=== PATIENT | female | born 1955 | race American Indian/Alaskan Native ===

== ENCOUNTER 2017-01-29 09:05 | Day surgery (SDC) | payer OTHER ==
[~2017-01-29] VITALS: Ht 157.5 cm; Wt 78.0 kg
[~2017-01-29 09:05] MED LIST: ATORVASTATIN CA10 MG PO; CEPHALEXIN500 MG PO; CLARITIN10 M2 PO; CYCLOBENZAPRINE10 MG PO; DYRENIUM50 MG PO; GLIPIZIDE10 MG PO; JANUVIA100 MG PO; TRAMADOL HCL50 MG PO; VITAMIN D2000 UNIT PO; ZESTRIL10 MG PO
--- NOTE | 2017-01-29 11:12 | NUR ---
01/29/17 1112 Zohreh Nath 1108 PATIENT ARRIVES TO PACU SITTING UP IN BED WITH EYES CLOSED, DOES NOT FOLLOW COMMANDS. RESP EVEN AND UNLABORED, MASK AT 8 LITERS.
--- NOTE | 2017-01-29 12:58 | NUR ---
1240: PATIENT MEDICATED FOR BURNING 6/10 PAIN IN LEFT BREAST. LEFT BREAST DRESSING CDI. O2 TURNED DOWN TO 1 L/MIN VIA NC. SCDs ON. MOTHER AT BEDSIDE. CALL LIGHT WITHIN REACH.
[2017-01-29] MEDS ORDERED: NORCO 5-325 TA1 EACH PO (13:44)
--- NOTE | 2017-01-29 14:28 | NUR ---
1410: PATIENT DROWSY, BUT EASILY AWAKENS. STATES PAIN IMPROVED. GIVEN SOUP TO EAT. NO OTHER REQUESTS AT THIS TIME. MOTHER AT BEDSIDE. CALL LIGHT WITHIN REACH.
--- NOTE | 2017-01-31 07:10 | OR ---
[facility] [address] [place], [place] [address] Signed DATE OF PROCEDURE: 01/29/17 PREOPERATIVE DIAGNOSIS: Palpable left retroareolar breast mass (1 x 2 cm). POSTOPERATIVE DIAGNOSIS: Palpable left retroareolar breast mass (1 x 2 cm). PROCEDURE: Excisional biopsy, left breast mass. ESTIMATED BLOOD LOSS: None. INDICATIONS Rupal is a 61-year-old female who was asked to see me for a palpable lump behind her left nipple areolar complex. Her mammogram in August of 2016 seemed to be fine. She woke up the day of [place] this fall and had a painful lump behind her left breast. She had been to her primary care provider. An ultrasound showed this complex mass measuring 1.9 x 1.3 x 1.7 cm. It had irregular margins and there was internal blood flow. It seemed to be inhomogeneous with the echotexture as well. She tried antibiotics and made no difference. Consequently, she was asked to see me as a general surgeon. In the office, she told me she thought it was the same size. Although today it seems to be a little smaller. She said it has not drained or been infected to her knowledge. However, it is tender and it is hard to hold her grandchildren or even sleep at night. She has been using Hydrocodone to control the pain. To her knowledge there was no trauma to the area. She has never had a previous breast biopsy. There is no family history of breast cancer. In the office, Rupal and I had a long discussion regarding her options. There was some consideration to weight and watch it over time and maybe repeat the ultrasound in the future. The other options of course would be to remove it completely in the operating room for definitive treatment and diagnosis. She had elected for the excisional biopsy. I gave her a booklet on breast and breast biopsies. We looked at that carefully. She understands the nature of the circumareolar incision to remove the lesion. She does understand the expected intra and postop course. We did review the risks including but not limited to bleeding, infection, scarring, change in contour of the skin as well as the possible need for additional surgery or treatments based on pathologic results. She had expressed understanding and wished to proceed. PROCEDURE NOTE I met with Rupal and her sister and our nurse in our preop area. 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 She thought today the mass was a little smaller. We could easily palpate that lesion. We went ahead and marked that appropriately. After this, Rupal was taken in the operating room and placed in a supine position under general endotracheal tube anesthesia. She was given preoperative antibiotics along with subcutaneous heparin. SCDs were utilized. She was then prepped and draped in the usual sterile fashion. We made a circumareolar incision Electronically Signed By: JUANJOSE HIGUERA MD 01/31/17 0710 PATIENT NAME: RUPAL NARANJO OPERATIVE REPORT DATE OF : 55 PHYSICIAN: JUANJOSE HIGUERA MD REPORT #: [id number] REPORT IS CONFIDENTIAL AND NOT TO BE RELEASED WITHOUT AUTHORIZATION [address] [address] Signed from about the 7 o'clock position to about the 2 o'clock position. This was carried down and around the lesion with the help of a cautery. This was an excisional biopsy, we did not take additional tissue with the specimen. The specimen is immediately behind the nipple and runs right up to the nipple itself. Consequently this most likely will represent some clogged duct. When we the lesion from the nipple, it left a small 3 mm opening in the nipple which we closed with a running #5-0 Monocryl suture. After this, we used our 5-0 Monocryl suture to bring the nipple up to at least flat with the level of the skin. We then placed a silk stitch on the end of the specimen on the same side as the nipple to marvin its location. After this, local anesthetic was copiously injected in the wound. The wound was irrigated and suctioned out until clear. We closed the wound in layers with 3-0 Monocryl suture including the dermis. We then closed the skin with a running 6-0 fast absorbing plain gut suture. This gave her an excellent cosmetic result. After this, dry gauze and tape was applied. Rupal was awakened from anesthesia, extubated in the OR, and taken into the recovery room in stable condition. MD DARYL Madrid/Ciral /[id number] cc: Emily Valentine MD Electronically Signed By: JUANJOSE HIGUERA MD 01/31/17 0710 PATIENT NAME: RUPAL NARANJO OPERATIVE REPORT DATE OF : 55 PHYSICIAN: JUANJOSE HIGUERA MD REPORT #: [id number] REPORT IS CONFIDENTIAL AND NOT TO BE RELEASED WITHOUT AUTHORIZATION
== END 2017-01-29 15:10 | disposition home or self-care (01) ==
LOC: DS 09:05
PROVIDERS: Colon & Rectal Surgery
PROC: 0HBU0ZX Excision of Left Breast, Open Approach, Diagnostic (ICD-10-PCS; principal; 2017-01-29 09:30)
DX: N61.1 Abscess of the breast and nipple (principal); N60.82 Other benign mammary dysplasias of left breast; Z87.891 Personal history of nicotine dependence; Z79.899 Other long term (current) drug therapy
CPT/HCPCS: 00404; J0330; J0690; J1644; J2704; J3010; J7120

== ENCOUNTER 2017-12-26 11:01 | Emergency (ER) | payer OTHER ==
[~2017-12-26] VITALS: Ht 157.5 cm; Wt 78.0 kg
--- OUTSIDE RECORDS SUMMARY | ~2017-12-26 | XMS | Encounter Summary ---
Demographics + + + | Address | [address] | | | [place] [address] | + + + | Home Phone | | + + + | Preferred Language | Unknown | + + + | Marital Status | | + + + | Rastafari Affiliation | Unknown | + + + | Race | Unknown | + + + | Ethnic Group | Unknown | + + + Author + + + | Author | [email or web address] | + + + | Organization | [email or web address] | + + + | Address | Unknown | + + + | Phone | Unavailable | + + + Support + + +---------+ + | Name | Relationship | Address | Phone | + + +---------+ + | Tessa Corral | ECON | Unknown | | + + +---------+ + | Adelina Jackson | ECON | Unknown | | + + +---------+ + | Jurgen Pineda | ECON | Unknown | | + + +---------+ + Care Team Providers + +------+ + | Care Keg Filler Name | Role | Phone | + +------+ + | Emily Valentine PA-C | PCP | | + +------+ + Reason for Visit + + + | Reason | Comments | + + + | Labs Only | [facility] dated 11/29/2017 | + + + Encounter Details +--------+ + + + + | Date | Type | Department | Care Team | Description | +--------+ + + + + | 11/30/ | Documentati | [facility] | Gloria Fox CMA | Labs Only ([facility] | | 2018 | on Only | [place] [address] | | Labs dated | | | | [address] | | 11/29/2017) | | | | [place], [place] [address] | | | | | | [phone] | | | +--------+ + + + + Social History + +-------+ +--------+------+ | Tobacco Use | Types | Packs/Day | Years | Date | | | | | Used | | + +-------+ +--------+------+ | Never Smoker | | | | | + +-------+ +--------+------+ + + + | Sex Assigned at | Date Recorded | | | | + + + | Not on file | | + + + as of this encounter Plan of Treatment Not on fileas of this encounter Visit Diagnoses Not on filein this encounter"
--- OUTSIDE RECORDS SUMMARY | ~2017-12-26 | XMS | Clinical Summary ---
Demographics + + + | Address | [address] | | | [place] [address] | + + + | Home Phone | | + + + | Preferred Language | Unknown | + + + | Marital Status | | + + + | Hindu Affiliation | Unknown | + + + | Race | Unknown | + + + | Ethnic Group | Unknown | + + + Author + + + | Author | [facility] | + + + | Organization | [facility] | + + + | Address | [...] Team Providers + +------+ + | Care Forestry Biology Specialist Name | Role | Phone | + +------+ + | Emily Valentine PA-C | PP | | + +------+ + Allergies No Known Allergies Current Medications + + +---------+---------+------+------+-------+ | Prescription | Sig. | Disp. | Refills | Star | End | Statu | | | | | | t | Date | s | | | | | | Date | | | + + +---------+---------+------+------+-------+ | cyclobenzaprine | Take 10 mg by mouth | | | | | Activ | | (FLEXERIL) 10 MG | daily. | | | | | e | | tablet | | | | | | | + + +---------+---------+------+------+-------+ | triamterene | Take 50 mg by mouth | | | | | Activ | | (DYRENIUM) 50 MG | daily. | | | | | e | | capsule | | | | | | | + + +---------+---------+------+------+-------+ | loratadine | Take 10 mg by mouth | | | | | Activ | | (CLARITIN) 10 MG | daily. | | | | | e | | tablet | | | | | | | + + +---------+---------+------+------+-------+ | atorvastatin | Take 10 mg by mouth | | | | | Activ | | (LIPITOR) 10 MG | nightly. | | | | | e | | tablet | | | | | | | + + +---------+---------+------+------+-------+ | ergocalciferol | Take 1 capsule by | 12 | 0 | 08/0 | | Activ | | (DRISDOL) [id number] | mouth once a week. | capsule | | 07/30 | | e | | units | | | | 17 | | | | capsuleIndications: | | | | | | | | CKD (chronic kidney | | | | | | | | disease) stage 3, | | | | | | | | GFR 30-59 ml/min, | | | | | | | | Essential | | | | | | | | hypertension, | | | | | | | | benign, Proteinuria, | | | | | | | | Vitamin D | | | | | | | | deficiency | | | | | | | + + +---------+---------+------+------+-------+ | lisinopril | Take 1 tablet by | 90 | 3 | 02/2 | | Activ | | (ZESTRIL) 5 MG | mouth daily. | tablet | | 06/29 | | e | | tablet | | | | 18 | | | + + +---------+---------+------+------+-------+ | aspirin 81 MG | Take 81 mg by mouth | | | | | Activ | | tablet | daily. | | | | | e | + + +---------+---------+------+------+-------+ | sitagliptan | Take 25 mg by mouth | | | | | Activ | | (JANUVIA) 25 MG | daily. | | | | | e | | tablet | | | | | | | + + +---------+---------+------+------+-------+ Active Problems + + + | Problem | Noted Date | + + + | CKD (chronic kidney disease) stage 3, GFR 30-59 ml/min | 05/13/2016 | + + + | Acute pain of left shoulder | 11/29/2015 | + + + | Diabetes mellitus (HCC) | 12/28/2011 | + + + | Essential hypertension, benign | 12/28/2011 | + + + | Obesity | 12/28/2011 | + + + | Low back pain | 12/28/2011 | + + + | Vitamin D deficiency | 12/28/2011 | + + + | Proteinuria | 12/28/2011 | + + + Resolved Problems + + + + | Problem | Noted | Resolved | | | Date | Date | + + + + | CKD (chronic kidney disease), stage III | 12/28/19 | | | | 12 | 7 | + + + + Encounters +--------+ + + + + | Date | Type | Specialty | Care Team | Description | +--------+ + + + + | 12/01/ | Office | | Rhett Frederick, | CKD (chronic kidney | | 2018 | Visit | | [facility] | disease) stage 3, | | | | | | GFR 30-59 ml/min | | | | | | (Primary Dx); | | | | | | Essential | | | | | | hypertension, | | | | | | benign; Proteinuria, | | | | | | unspecified type; | | | | | | Vitamin D deficiency | +--------+ + + + + | 11/30/ | Documentati | | Gloria Fox CMA | Labs Only ([facility] | | 2018 | on Only | | | Labs dated | | | | | | 11/29/2017) | +--------+ + + + + | 11/30/ | Orders Only | | Gloria Fox CMA | CKD (chronic kidney | | 2018 | | | | disease) stage 3, | | | | | | GFR 30-59 ml/min; | | | | | | Essential | | | | | | hypertension, | | | | | | benign; Proteinuria, | | | | | | unspecified type | +--------+ + + + + from Last 3 Months Social History + +-------+ +--------+------+ | Tobacco [...] on file | | + + + Last Filed Vital Signs + + + + | Vital Sign | Reading | Time Taken | + + + + | Blood Pressure | 88/52 | 12/01/2017 9:45 AM PDT | + + + + | Pulse | 79 | 12/01/2017 9:45 AM PDT | + + + + | Temperature | 36 C (96.8 F) | 06/04/2017 10:56 AM PST | + + + + | Respiratory Rate | 14 | 01/20/2013 3:00 PM PDT | + + + + | Oxygen Saturation | 92% | 12/01/2017 9:45 AM PDT | + + + + | Inhaled Oxygen | - | - | | Concentration | | | + + + + | Weight | 75.3 kg (166 lb) | 12/01/2017 9:45 AM PDT | + + + + | Height | 162.6 cm (5' 4") | 12/01/2017 9:45 AM PDT | + + + + | Body Mass Index | 28.49 | 12/01/2017 9:45 AM PDT | + + + + Plan of Treatment + + + + + | Health Maintenance | Due Date | Last Done | Comments | + + + + + | Diabetic Eye Exam | | | | | | 6 | | | + + + + + | Diabetic Foot Exam | | | | | | 6 | | | + + + + + | Hemoglobin A1c | | | | | | 6 | | | + + + + + | Vaccine: | | | | | Dtap/Tdap/Td (1 - | 5 | | | | Tdap) | | | | + + + + + | Vaccine: | | | | | Pneumococcal 19-64 | 5 | | | | (PPSV23 only) Medium | | | | | Risk (1 of 1 - | | | | | PPSV23) | | | | + + + + + | Cervical Cancer | | | | | Screening (Pap) | 6 | | | + + + + + | Breast Cancer | | | | | Screening | 6 | | | | (Mammogram) | | | | + + + + + | Colon Cancer | | | | | Screening | 6 | | | | (Colonoscopy) | | | | + + + + + | Vaccine: Zoster (1 | | | | | of 2) | 6 | | | + + + + + | Microalbumin | | 10/19/2012, 06/30/2012 | | | Screening | 4 | | | + + + + + | Vaccine: Influenza | | | | | (#1) | 8 | | | + + + + + Procedures + +--------+ + + + | Procedure Name | Priori | Date/Time | Associated Diagnosis | Comments | | | ty | | | | + +--------+ + + + | URIC ACID | Routin | 11/29/2017 | CKD (chronic | Results for this | | | e | 10:45 AM | kidney disease) | procedure are in the | | | | PDT | stage 3, GFR 30-59 | results section. | | | | | ml/min Essential | | | | | | hypertension, benign | | | | | | Proteinuria, | | | | | | unspecified type | | + +--------+ + + + | PROTEIN / CREATININE | Routin | 11/29/2017 | CKD (chronic | Results for this | | RATIO, URINE | e | 10:45 AM | kidney disease) | procedure are in the | | | | PDT | stage 3, GFR 30-59 | results section. | | | | | ml/min Essential | | | | | | hypertension, benign | | | | | | Proteinuria, | | | | | | unspecified type | | + +--------+ + + + | RENAL FUNCTION PANEL | Routin | 11/29/2017 | CKD (chronic | Results for this | | | e | 10:45 AM | kidney disease) | procedure are in the | | | | PDT | stage 3, GFR 30-59 | results section. | | | | | ml/min Essential | | | | | | hypertension, benign | | | | | | Proteinuria, | | | | | | unspecified type | | + +--------+ + + + | MAGNESIUM | Routin | 11/29/2017 | CKD (chronic | Results for this | | | e | 10:45 AM | kidney disease) | procedure are in the | | | | PDT | stage 3, GFR 30-59 | results section. | | | | | ml/min Essential | | | | | | hypertension, benign | | | | | | Proteinuria, | | | | | | unspecified type | | + +--------+ + + + | CBC W/AUTO DIFF | Routin | 11/29/2017 | CKD (chronic | Results for this | | (REFLEX TO MANUAL) | e | 10:45 AM | kidney disease) | procedure are in the | | | | PDT | stage 3, GFR 30-59 | results section. | | | | | ml/min Essential | | | | | | hypertension, benign | | | | | | Proteinuria, | | | | | | unspecified type | | + +--------+ + + + | PTH INTACT NO | Routin | 11/29/2017 | CKD (chronic | Results for this | | CALCIUM | e | 10:45 AM | kidney disease) | procedure are in the | | | | PDT | stage 3, GFR 30-59 | results section. | | | | | ml/min Essential | | | | | | hypertension, benign | | | | | | Proteinuria, | | | | | | unspecified type | | + +--------+ + + + from Last 3 Months Results Protein / creatinine ratio, urine (11/29/2017 10:45 AM) + + + + + | Component | Value | Ref Range | Performed At | + + + + + | UR | 266.7 (A) | 0 - 150 | [facility] | | PROTEIN/CREATININE | | | LABORATORY | + + + + + + + | Specimen | + + | Urine | + + + + + + + | Performing | Address | City/State/Zipcode | Phone Number | | Organization | | | | + + + + + | [facility] | [address] | [place] [address] | | | LABORATORY | 13 | | | + + + + + CBC W/Auto Diff (Reflex to Manual) (11/29/2017 10:45 AM) + +-------+ + + | Component | Value | Ref Range | Performed At | + +-------+ + + | WBC | 8.6 | 4.5 - 11.0 10^3/mL | [facility] | | | | | LABORATORY | + +-------+ + + | RBC | 4.25 | 3.8 - 5.1 10^6/ L | [facility] | | | | | LABORATORY | + +-------+ + + | HGB | 12.7 | 12 - 16 g/dL | [facility] | | | | | LABORATORY | + +-------+ + + | HCT | 38.5 | 35 - 45 % | [facility] | | | | | LABORATORY | + +-------+ + + | MCV | 90.8 | 81 - 99 fL | [facility] | | | | | LABORATORY | + +-------+ + + | MCH | 30 | 27 - 33 pg | [facility] | | | | | LABORATORY | + +-------+ + + | MCHC | 33 | 30 - 36 g/dL | [facility] | | | | | LABORATORY | + +-------+ + + | PLT | 337 | 140 - 440 K/ L | [facility] | | | | | LABORATORY | + +-------+ + + | RDW SD | 14.6 | 10.5 - 15.0 % | [facility] | | | | | LABORATORY | + +-------+ + + | MPV | | fL | [facility] | | | | | LABORATORY | + +-------+ + + | DIFF TYPE | | | [facility] | | | | | LABORATORY | + +-------+ + + | NEUTROPHILS | | % | [facility] | | | | | LABORATORY | + +-------+ + + | LYMPHOCYTES | | % | [facility] | | | | | LABORATORY | + +-------+ + + | MONOCYTES | | % | [facility] | | | | | LABORATORY | + +-------+ + + | EOSINOPHILS | | % | [facility] | | | | | LABORATORY | + +-------+ + + | BASOPHILS | | % | [facility] | | | | | LABORATORY | + +-------+ + + | NEUTROPHILS ABS | | / L | [facility] | | | | | LABORATORY | + +-------+ + + | LYMPHOCYTES ABS | | / L | [facility] | | | | | LABORATORY | + +-------+ + + | MONOCYTES ABS | | / L | [facility] | | | | | LABORATORY | + +-------+ + + | EOSINOPHILS ABS | | / L | [facility] | | | | | LABORATORY | + +-------+ + + | BASOPHILS ABS | | / L | [facility] | | | | | LABORATORY | + +-------+ + + + + | Specimen | + + | Blood | + + + + + + + | Performing | Address | City/State/Zipcode | Phone Number | | Organization | | | | + + + + + | [facility] | [address] | [place] [address] | | | LABORATORY | 13 | | | + + + + + Uric acid (11/29/2017 10:45 AM) + +-------+ + + | Component | Value | Ref Range | Performed At | + +-------+ + + | URIC ACID | 5.0 | 2.3 - 6.6 | [facility] | | | | | LABORATORY | + +-------+ + + + + | Specimen | + + | Blood | + + + + + + + | Performing | Address | City/State/Zipcode | Phone Number | | Organization | | | | + + + + + | [facility] | [address] | [place] [address] | | | LABORATORY | 13 | | | + + + + + PTH intact no calcium (11/29/2017 10:45 AM) + +-------+ + + | Component | Value | Ref Range | Performed At | + +-------+ + + | PTH INTACT NO | 34.01 | 15 - 65 pg/mL | [facility] | | CALCIUM | | | LABORATORY | + +-------+ + + + + | Specimen | + + | Blood | + + + + + + + | Performing | Address | City/State/Zipcode | Phone Number | | Organization | | | | + + + + + | [facility] | [address] | [place] [address] | | | LABORATORY | 13 | | | + + + + + Magnesium (11/29/2017 10:45 AM) + +-------+ + + | Component | Value | Ref Range | Performed At | + +-------+ + + | MAGNESIUM | 1.8 | 1.7 - 2.5 mg/dL | [facility] | | | | | LABORATORY | + +-------+ + + + + | Specimen | + + | Blood | + + + + + + + | Performing | Address | City/State/Zipcode | Phone Number | | Organization | | | | + + + + + | [facility] | [address] | [place] [address] | | | LABORATORY | 13 | | | + + + + + Renal function panel (11/29/2017 10:45 AM) + + + + + | Component | Value | Ref Range | Performed At | + + + + + | GLUCOSE | 100 | 70 - 100 mg/dL | [facility] | | | | | LABORATORY | + + + + + | BUN | 22 | 6 - 23 mg/dL | [facility] | | | | | LABORATORY | + + + + + | CREATININE | 1.47 (A) | 0.7 - 1.25 mg/dL | [facility] | | | | | LABORATORY | + + + + + | PHOSPHORUS | 3.8 | 2.5 - 5.0 mg/dL | [facility] | | | | | LABORATORY | + + + + + | Albumin | 3.9 | 3.5 - 5.0 | [facility] | | | | | LABORATORY | + + + + + | SODIUM | 138 | 132 - 143 mmol/L | [facility] | | | | | LABORATORY | + + + + + | POTASSIUM | 5.0 | 3.6 - 5.1 mmol/L | [facility] | | | | | LABORATORY | + + + + + | CHLORIDE | 107 | 95 - 112 mmol/L | [facility] | | | | | LABORATORY | + + + + + | CO2 | 18 (A) | 19 - 31 mmol/L | [facility] | | | | | LABORATORY | + + + + + | ANION GAP AGAP | 18 | 7 - 21 mmol/L | [facility] | | | | | LABORATORY | + + + + + | GFR MDRD Non Af Amer | | | [facility] | | | | | LABORATORY | + + + + + | Phosphorus,Inorganic | | | [facility] | | | | | LABORATORY | + + + + + | BUN/CREAT | 15.0 | 6.0 - 28.6 | [facility] | | | | | LABORATORY | + + + + + | CALCIUM | 9.1 | 8.5 - 10.3 mg/dL | [facility] | | | | | LABORATORY | + + + + + | EGFR | 36 (A) | 60 mg/dL | [facility] | | | | | LABORATORY | + + + + + + + | Specimen | + + | Blood | + + + + + + + | Performing | Address | City/State/Zipcode | Phone Number | | Organization | | | | + + + + + | [facility] | [address] | [place] [address] | | | LABORATORY | 13 | | | + + + + + from Last 3 Months Insurance + +--------+ +------+-------+ + | Payer | Benefi | Subscriber | Type | Phone | Address | | | t Plan | ID | | | | | | / | | | | | | | Group | | | | | + +--------+ +------+-------+ + | MEDICAID | MEDICA | [id number] | | | [address] | | | ID | | | | [place] | | | [place] | | | | [phone] | + +--------+ +------+-------+ + + +--------+ +--------+ + + | Guarantor Name | Accoun | Relation to | Date | Phone | Billing Address | | | t Type | Patient | of | | | | | | | | | | + +--------+ +--------+ + + | RUPAL HARKINS | Person | Self [birth year] Home: | [address] | | | [place] | | [phone] | [place] | | | amari | | | [phone] | + +--------+ +--------+ + +
--- OUTSIDE RECORDS SUMMARY | ~2017-12-26 | XMS | Encounter Summary ---
Demographics + + + | Address | [address] | | | [place] [address] | + + + | Home Phone | | + + + | Preferred Language | Unknown | + + + | Marital Status | | + + + | Jew Affiliation | Unknown | + + + | Race | Unknown | + + + | Ethnic Group | Unknown | + + + Author + + + | Author | [facility] | + + + | Organization | [facility] | + + + | Address | [...] Team Providers + +------+ + | Care Aboriginal Education Worker Coordinator Name | Role | Phone | + [...] 11/29/2017) | | | | [place], [place] [address] | | | | | | [phone] | | | +--------+ + + + [...]
--- OUTSIDE RECORDS SUMMARY | ~2017-12-26 | XMS | Encounter Summary ---
Demographics + + + | Address | [address] | | | [place] [address] | + + + | Home Phone | | + + + | Preferred Language | Unknown | + + + | Marital Status | | + + + | Samaritan Affiliation | Unknown | + + + | Race | Unknown | + + + | Ethnic Group | Unknown | + + + Author + + + | Author | [facility] | + + + | Organization | [facility] | + + + | Address | [...] Team Providers + +------+ + | Care Sanitary Chemist Name | Role | Phone | + +------+ + | Emily Valentine PA-C | PCP | | + +------+ + Encounter Details +--------+ + + + + | Date | Type | Department | Care Team | Description | +--------+ + + + + | 11/30/ | Orders Only | [facility] | Gloria Fox CMA | CKD (chronic kidney | | 2017 | | [place] [address] | | disease) stage 3, | | | | [address] | | GFR 30-59 ml/min; | | | | [place] [address] | | Essential | | | | [phone] | | hypertension, | | | | | | benign; Proteinuria, | | | | | | unspecified type | +--------+ + + + + Social [...] Treatment Not on fileas of this encounter Procedures + +--------+ + + + | [...] | | + +--------+ + + + in this encounter Results Uric acid (11/29/2017 10:45 AM) + +-------+ [...] | [address] | [place] [address] | | | LABORATORY | 13 | | | + + + + + Protein / creatinine ratio, urine (11/29/2017 10:45 [...] | [address] | [place] [address] | | | LABORATORY | 13 | [...] | [address] | [place] [address] | | | LABORATORY | 13 | [...] | [address] | [place] [address] | | | LABORATORY | 13 | [...] | [address] | [place] [address] | | | LABORATORY | 13 | [...] + + + | [facility] | [address] | [place] [address] | | | LABORATORY | 13 | | | + + + + + in this encounter Visit Diagnoses + + | Diagnosis | + + | CKD (chronic kidney disease) stage 3, GFR 30-59 ml/min | + + | Essential hypertension, benign | + + | Proteinuria, unspecified type | + +"
--- OUTSIDE RECORDS SUMMARY | ~2017-12-26 | XMS | Encounter Summary ---
Demographics + + + | Address | [address] | | | [place] [address] | + + + | Home Phone | | + + + | Preferred Language | Unknown | + + + | Marital Status | | + + + | Bahai Affiliation | Unknown | + + + | Race | Unknown | + + + | Ethnic Group | Unknown | + + + Author + + + | Author | [facility] | + + + | Organization | [facility] | + + + | Address | [...] Team Providers + +------+ + | Care Masseur/Masseuse Name | Role | Phone | + +------+ + | Emily Valentine PA-C | PCP | | + +------+ + Encounter Details +--------+---------+ + + + | Date | Type | Department | Care Team | Description | +--------+---------+ + + + | 12/01/ | Office | [facility] | Rhett Frederick, | CKD (chronic kidney | | 2018 | Visit | [facility] [address] | JAKUB GODWIN | disease) stage 3, | | | | [address] | [address] | GFR 30-59 ml/min | | | | [address] [place], [place] | [place] [address] | (Primary Dx); | | | | [address] | [phone] | Essential | | | | | | hypertension, | | | | | | benign; Proteinuria, | | | | | | unspecified type; | | | | | | Vitamin D deficiency | +--------+---------+ + + + Social History + +-------+ [...] + + + as of this encounter Last Filed Vital Signs + + + + | Vital Sign | Reading | Time Taken | + + + + | Blood Pressure | 88/52 | 12/01/2017 9:45 AM PDT | + + + + | Pulse | 79 | 12/01/2017 9:45 AM PDT | + + + + | Temperature | - | - | + + + + | Respiratory Rate | - | - | + + + + | Oxygen [...] AM PDT | + + + + in this encounter Instructions Patient Instructions - Rhett Frederick ARNP - 12/01/2017 10:00 AM PDT Medication Changes made at today's visit: None Next LAB WORK should be done in about: 6 Months You do NOT need to fast for this lab work, keep hydrated. Next APPOINTMENT: in about 6 Months Other Instructions: Keep hydrated with water. Please have lab work done 1 weeks prior to your appointment. Make sure you are well hydrated prior to going to the lab and are able to give a urine s ample. Call the office with any questions or concerns. If you are taking a proton pump inhibitor, such as Protonix (omeprazole), talk to your [facility] care provider about if you need this medication correction. Call our office or your PCP if you have blood pressure over 150/90 on more than one occa deann, or low blood pressure that is concerning. If you experience diarrhea and /or vomiting for more than 24 hours with no relief please seek medical help immediately. The treatments that are recommended to slow the progression of Chronic Kidney Disease in clude blood sugar control, blood pressure control, healthy body weight (BMI >= 30 kg/m2), av oid sedentary lifestyle, avoid smoking/ tobacco, avoid NSAIDs, early intervention of worseni ng nausea, vomiting, no or low appetite and/or frequent diarrhea and avoid IV contrast. I urge that you measure your BP at least daily, twice daily, record it and bring record to every appointment with every healthcare provider you see. Do not drink alcohol. Avoid caffeinated beverages such as soda pop, coffee, espresso drinks, energy drinks. Please bring all of your medications in the pharmacy bottles to every visit so a medicat ion review can be done. Make all healthcare providers aware of the presence of kidney disease and request to adj ust all medications according to level of kidney function and to avoid nephrotoxic medicatio ns if possible, including but not limited to antibiotics. Call us with any questions about m eds. DO NOT TAKE any anti-inflammatory drugs such Ibuprofen, Diclofenac, Motrin, Advil, Cotter xicam, naprosyn (Aleve), Celebrex, decongestants containing pseudoephedrine (such as some fo nitin of Sudafed or Actifed) or herbal supplements (because of lack of FDA approval) Short term use of acetaminophen (Tylenol) for fever or pain is okay. If in doubt please call our office for verification. Avoid exposure to IV contrast agents (DYE) used in CT scans, MRI's, Fluoroscopy, or in h eart catheterization procedures unless necessary or for a life saving procedure. If you smoke, you must quit. Smoking worsens kidney disease. in this encounter Progress Notes Rhett Frederick ARNP - 12/01/2017 10:00 AM PDTFormatting of this note may be different f rom the original. Patient Active Problem List Diagnosis Diabetes mellitus (HCC) Essential hypertension, benign Obesity Low back pain Vitamin D deficiency Proteinuria Acute pain of left shoulder CKD (chronic kidney disease) stage 3, GFR 30-59 ml/min Dear Dr. Valentine: Thank you for the opportunity to see Ms. Harkins in the office today to follow up on her CK D. As you are familiar with her case, I will not state her past history in detail. Briefly , she is a 62 y.o. female patient with past history as delineated above. Back in 10/2011, He r SCr clayton to 1.54 with a GFR of 35; she also tells me that her GFR was lower than 30 in lat e 2010. The patient has history of hypertension since 2005, Diabetes Mellitus since 2005. her BG an d BP control has been reportedly controlled. she denies any history of recent exposure to kn own nephrotoxins. She reports to have taking NSAID's for years, stopped about 2013 years ago . she denies any recurrent nephrolithiasis or pyelonephritis. she tells me that she's had no history of urinary retention, gross hematuria or dysuria. she has no incontinence symptoms. No symptoms of UTI. she has 1 or 2 nightly nocturia. No history of passing kidney stones. she has no foamy urine either. her baseline Creatinine is 1.2-1.5. There is no family histo ry of renal genetic diseases such as PKD. she says that she feels 'good ' today. she denies tinnitus, headache, fever, chills, or co ugh. No nausea, vomiting, abdominal pain, diarrhea, melena, or hematochezia. No chest pain, palpitation, dizziness, loss of consciousness, orthopnea, paroxysmal nocturn al dyspnea, or leg edema. She has run out of her medications in the past, been off of them for weeks at a time. No home BP log, not checking at home due to no machine. She drinks regular coke daily, not much water. The following portions of the patient's history were reviewed and updated as appropriate: a llergies, current medications, past medical history, past social history, past surgical hist ory, family history and problem list. As in History of Present Illness. All the twelve systems were reviewed and were otherwise n egative. Current Outpatient Prescriptions Medication Sig Dispense Refill aspirin 81 MG tablet Take 81 mg by mouth daily. atorvastatin (LIPITOR) 10 MG tablet Take 10 mg by mouth nightly. cyclobenzaprine (FLEXERIL) 10 MG tablet Take 10 mg by mouth daily. ergocalciferol (DRISDOL) 69298 units capsule Take 1 capsule by mouth once a week. 12 ca psule 0 lisinopril (ZESTRIL) 5 MG tablet Take 1 tablet by mouth daily. 90 tablet 3 loratadine (CLARITIN) 10 MG tablet Take 10 mg by mouth daily. sitagliptan (JANUVIA) 25 MG tablet Take 25 mg by mouth daily. triamterene (DYRENIUM) 50 MG capsule Take 50 mg by mouth daily. No current facility-administered medications for this visit. Physical Exam: BP (!) 88/52 (BP Location: Left upper arm, Patient Position: Sitting) | Pulse 79 | Ht 1.6 26 m (5' 4") | Wt 75.3 kg (166 lb) | SpO2 92% | BMI 28.49 kg/m General appearance: Pleasant, not in acute distress. Neck: Supple without tracheal deviation or jugular venous distension. Head and ENT: Head is atraumatic. The oropharynx is without erythema or thrush. Eyes: Anicteric. The extraocular muscle movements are normal. Lungs: Clear to auscultation bilaterally. There are no wheezes. Heart: Regular rate and rhythm without any rub, gallop. no murmur. Abdominal exam: Soft, obese and nontender with normal bowel sounds. Musculoskeletal: No costovertebral angle tenderness bilaterally. Extremities: Warm to touch with no leg edema. There is no cyanosis. Skin: There are no rashes, petechiae, or ecchymosis. Neurological: Awake, alert, and oriented to time, place, and person. Normal gross motor po wer. There is no asterixis. Psychiatric: The patient s behavior is normal. Judgment and thought content are normal. Lab Results Component Value Date BUN 22 11/29/2017 CREATININE 1.47 (A) 11/29/2017 EGFR 36 (A) 11/29/2017 NA 138 11/29/2017 K 5.0 11/29/2017 CL 107 11/29/2017 CO2 18 (A) 11/29/2017 CA 9.1 11/29/2017 PHOS 3.8 11/29/2017 MG 1.8 11/29/2017 ALB 3.9 11/29/2017 HGB 12.7 11/29/2017 URICACID 5.0 11/29/2017 WBC 8.6 11/29/2017 HCT 38.5 11/29/2017 LABPROT 266.7 (A) 11/29/2017 [id number] 05/31/2017 Assessment: Ms. Harkins is a 62 y.o. female patient with stage III CKD on a background of diabetes & hy pertension. The most likely pathology here is that of diabetic nephropathy +/- hypertensive nephrosclerosis. RENAL FUNCTION: Relatively stable for her BLOOD PRESSURE: Unknown control at home, low in the office today, she has not taken any BP med this AM. BLOOD SUGAR: Reportedly uncontrolled ELECTROLYTES: Potassium upper limit ANEMIA: None VITAMIN D: Improved with replacement PARATHYROID HORMONE: Mild up URIC ACID: Normal PROTEINURIA: Moderate now URINALYSIS: No hematuria or UTI VOLUME STATUS: Euvolumic I discussed today with Ms.. Harkins the meaning of her CKD and the interaction of that with her CKD. I stressed the importance of keeping her BP & BG controlled and avoiding getting dehydrated if we are to have a chance at helping preserve her renal function. She showed go od understanding. I gave her instructions on how to chart her blood pressure in the appropr iate manner at home. She is to call us if they fall outside of the optimal provided range. She will bring her sphygmomanometer for validation once a year. She will strictly abide by a low sodium & low potassium diet and will avoid all kinds of NSAIDs for analgesia. PLAN: No change to vasoactive medications today. Discussed hydration, less soda, drink more water. I asked her to get another BP machine today. she will bring me back her home BP charts in 1 week. At that time, I will decide whether any changes to her vasoactive regimen are war ranted. Follow up labs include: RFP, Magnesium, CBC, uric acid, Urine total aoxsgug-qe-oiezegrgr e ratio and other labs as indicated. Discussed to avoid alcohol and caffeine. Patient has expressed understanding of today's instructions, all questions have been ans wered to their satisfaction and written instructions have been provided. She will continue to F/U with your office regularly. She will have labs done before she comes back in [address] Valentine for the opportunity to follow up with this patient and be part of the care team. Please do not hesitate to call me at any time with questions or concerns. Truly yours, Rhett CALL [facility] This note prepared with voice recognition software, if any questions concerning spelling an d/or grammar, please call. in this encounter Plan of Treatment + +--------+ + + | Name | Priori | Associated Diagnoses | Order Schedule | | | ty | | | + +--------+ + + | Renal function panel | Routin | CKD (chronic | Expected: | | | e | kidney disease) | 06/03/2018, Expires: | | | | stage 3, GFR 30-59 | 12/01/2018 | | | | ml/min Essential | | | | | hypertension, benign | | | | | Proteinuria, | | | | | unspecified type | | | | | Vitamin D deficiency | | + +--------+ + + | CBC W/Auto Diff (Reflex to | Routin | CKD (chronic | Expected: | | Manual) | e | kidney disease) | 06/03/2018, Expires: | | | | stage 3, GFR 30-59 | 12/01/2018 | | | | ml/min Essential | | | | | hypertension, benign | | | | | Proteinuria, | | | | | unspecified type | | | | | Vitamin D deficiency | | + +--------+ + + | Magnesium | Routin | CKD (chronic | Expected: | | | e | kidney disease) | 06/03/2018, Expires: | | | | stage 3, GFR 30-59 | 12/01/2018 | | | | ml/min Essential | | | | | hypertension, benign | | | | | Proteinuria, | | | | | unspecified type | | | | | Vitamin D deficiency | | + +--------+ + + | Uric acid | Routin | CKD (chronic | Expected: | | | e | kidney disease) | 06/03/2018, Expires: | | | | stage 3, GFR 30-59 | 06/03/2018 | | | | ml/min Essential | | | | | hypertension, benign | | | | | Proteinuria, | | | | | unspecified type | | | | | Vitamin D deficiency | | + +--------+ + + | PTH intact no calcium | Routin | CKD (chronic | Expected: | | | e | kidney disease) | 06/03/2018, Expires: | | | | stage 3, GFR 30-59 | 12/01/2018 | | | | ml/min Essential | | | | | hypertension, benign | | | | | Proteinuria, | | | | | unspecified type | | | | | Vitamin D deficiency | | + +--------+ + + | Protein / creatinine ratio, urine | Routin | CKD (chronic | Expected: | | | e | kidney disease) | 06/03/2018, Expires: | | | | stage 3, GFR 30-59 | 12/01/2018 | | | | ml/min Essential | | | | | hypertension, benign | | | | | Proteinuria, | | | | | unspecified type | | | | | Vitamin D deficiency | | + +--------+ + + as of this encounter Visit Diagnoses + + | Diagnosis | + + | CKD (chronic kidney disease) stage 3, GFR 30-59 ml/min - Primary | + + | Essential hypertension, benign | + + | Proteinuria, unspecified type | + + | Vitamin D deficiency | + + | Unspecified vitamin D deficiency | + +
--- OUTSIDE RECORDS SUMMARY | ~2017-12-26 | XMS | Encounter Summary ---
Demographics + + + | Address | [address] | | | [place] [address] | + + + | Home Phone | | + + + | Preferred Language | Unknown | + + + | Marital Status | | + + + | Synagogue Affiliation | Unknown | + + + | Race | Unknown | + + + | Ethnic Group | Unknown | + + + Author + + + | Author | [facility] | + + + | Organization | [facility] | + + + | Address | [...] Team Providers + +------+ + | Care Warp Knit Operator Name | Role | Phone | + [...] 30-59 ml/min | | | | [address], [place] | [place] [address] | (Primary Dx); | | | | [address] | [phone] | Essential | | | | | [...] such as Protonix (omeprazole), talk to your [facility] care provider about if you need this medication skilled nursing. Call our office or your PCP if [...] 10 mg by mouth daily. ergocalciferol (DRISDOL) 21268 units capsule Take 1 capsule by mouth [...] HCT 38.5 11/29/2017 LABPROT 266.7 (A) 11/29/2017 [id number] 05/31/2017 Assessment: Ms. Harkins is a [...] RFP, Magnesium, CBC, uric acid, Urine total kaogoed-gw-crjuxgchw e ratio and other labs as indicated. [...] questions or concerns. Truly yours, Rhett CALL [facility] This note prepared with voice recognition [...]
--- OUTSIDE RECORDS SUMMARY | ~2017-12-26 | XMS | Encounter Summary ---
Demographics + + + | Address | [address] | | | [place] [address] | + + + | Home Phone | | + + + | Preferred Language | Unknown | + + + | Marital Status | | + + + | Moravian Affiliation | Unknown | + + + | Race | Unknown | + + + | Ethnic Group | Unknown | + + + Author + + + | Author | [facility] | + + + | Organization | [facility] | + + + | Address | [...] Team Providers + +------+ + | Care Loom Overhauler Name | Role | Phone | + [...] GFR 30-59 ml/min; | | | | [place] [address] | | Essential | | | | [phone] | | hypertension, | | | | [...] | [address] | [place] [address] | | | LABORATORY | 13 | [...] | [address] | [place] [address] | | | LABORATORY | 13 | [...] | [address] | [place] [address] | | | LABORATORY | 13 | [...] | [address] | [place] [address] | | | LABORATORY | 13 | [...] | [address] | [place] [address] | | | LABORATORY | 13 | [...] + + + | [facility] | [address] | [place] [address] | | | LABORATORY | 13 | | | + + + + + in this encounter Visit Diagnoses + + | Diagnosis | + + | CKD (chronic kidney disease) stage 3, GFR 30-59 ml/min | + + | Essential hypertension, benign | + + | Proteinuria, unspecified type | + +"
--- OUTSIDE RECORDS SUMMARY | ~2017-12-26 | XMS | Clinical Summary ---
Demographics + + + | Address | [address] | | | [place] [address] | + + + | Home Phone | | + + + | Preferred Language | Unknown | + + + | Marital Status | | + + + | Baptism Affiliation | Unknown | + + + | Race | Unknown | + + + | Ethnic Group | Unknown | + + + Author + + + | Author | [facility] | + + + | Organization | [facility] | + + + | Address | [...] Team Providers + +------+ + | Care Conservation Technician Name | Role | Phone | + [...] 08/0 | | Activ | | (DRISDOL) 99083 | mouth once a week. | capsule [...] | | 2018 | Visit | | CLINIC PHYSICIAN | disease) stage 3, | | | [...] | [address] | [place] [address] | | | LABORATORY | 13 | [...] | [address] | [place] [address] | | | LABORATORY | 13 | [...] [facility] | [address] | [place] [address] | | | LABORATORY | 13 | [...] | [address] | [place] [address] | | | LABORATORY | 13 | [...] | [address] | [place] [address] | | | LABORATORY | 13 | [...] | [address] | [place] [address] | | | LABORATORY | 13 | [...] +------+-------+ + | MEDICAID | MEDICA | [id number] | | | [address] | | | ID | | | | [place] | | | [place] | | | | [address] | + +--------+ +------+-------+ + + +--------+ [...] | | | [place] | | | [address] | [address] | + +--------+ +--------+ + +
[~2017-12-26 11:01] MED LIST changes: +NORCO 5-325 TA1 EACH PO
[2017-12-26] MEDS ORDERED: PENICILLIN V P500 MG PO (11:37)
[2017-12-26] MEDS ORDERED: HURRICAINE ONE1 EACH MM (11:37)
== END 2017-12-26 11:56 | disposition home or self-care (01) ==
LOC: ED 11:01
DX: K08.89 Other specified disorders of teeth and supporting structures (principal); I10 Essential (primary) hypertension; E11.9 Type 2 diabetes mellitus without complications; Z79.84 Long term (current) use of oral hypoglycemic drugs; Z79.899 Other long term (current) drug therapy
CPT/HCPCS: 99282